=== PATIENT | male | born 2000 | race Two or more races ===

== ENCOUNTER 2021-02-02 23:04 | Inpatient (IN) | payer SELFPAY ==
[2021-02-02] MEDS ORDERED: Sodium Chloride 0.9% 2.5 ML Syringe FLUSH PRN (23:06)
[2021-02-02] MEDS ORDERED: Sodium Chloride 0.9% 10 ML Syringe FLUSH PRN (23:06)
[2021-02-02] MEDS ORDERED: LORazepam 2 MG/ML SDV IVPUSH ONE (23:13)
[2021-02-02] MEDS ORDERED: Ondansetron 4 MG/2 ML SDV IVPUSH ONE (23:18)
--- NOTE | 2021-02-02 23:20 | EDM.PDOC ---
ED HPI GENERAL MEDICAL PROBLEM - General Chief Complaint: Neuro Symptoms/Deficits Stated Complaint: EMS Time Seen by Provider: 02/02/21 23:05 - History of Present Illness INITIAL COMMENTS - FREE TEXT/NARRATIVE: History of present illness: [] The patient was witnessed by his Dormate having a seizure. He had a brief seizure and then was confused afterwards. The history given to the paramedics was that he takes Prozac and he had been off it 2 days. When he was off it for 2 days in the past he had a seizure as well. The patient was confused on arrival. The mother said that he is treated for schizophrenia and she lives in [place]. She says she wants to be called back at anytime day or night. Her number is [phone]. He complains of a headache. The patient admits that he is unable to keep his Prozac down because he has been vomiting for 2 days. Review of systems: As per history of present illness and below otherwise all systems reviewed and negative. Past medical history: As per history of present illness and as reviewed below otherwise noncontributory. Surgical history: As per history of present illness and as reviewed below otherwise noncontributory. Social history: No reported history of drug or alcohol abuse. Family history: As per history of present illness and as reviewed below otherwise noncontributory. Physical exam: Constitutional - well developed, well-nourished and in no acute distress HEENT - normocephalic, no evidence of trauma - external nose and mouth normal - no mass in neck and no JVD - mucosae moist EYES - full EOM, PERRL, no icterus - no evidence of inflammation, injection, or drainage Respiratory - no respiratory distress, equal bilateral expansion, lungs clear to auscultation and no abnormal lung sounds Cardiovascular - Regular Rhythm with S1 and S2 appreciated and no murmur, gallop or rub. GI - abdomen soft without distension or organomegaly - normal bowel sounds - no guard or rebound Musculoskeletal no gross deformity of long bones or joints - no tenderness, swelling or edema Neurologic - Alert and oriented times four - CN II-XII grossly intact - motor sensory and coordination symmetrically normal Psychiatric -somewhat anxious. Confused. Does remember that he has had seizures in the past. Not sure if he is on seizure medicine but is sure that he is on Prozac and has not been be able to take it. Hematologic - No petechiae or purpura - mucosa appropriate color and sclera not pale - normal nail bed color and refill Integument - no rash or evidence of trauma - normal turgor Diagnostics: [] Therapeutics: [] Impression: [] Plan: [] Definitive disposition and diagnosis as appropriate pending reevaluation and review of above. - Related Data Allergies Allergy/AdvReac Type Severity Reaction Status Date / Time No Known Allergies Allergy Verified 02/03/21 01:53 Home Meds: Home Meds FLUoxetine HCl [Prozac] 20 mg PO DAILY 02/03/21 [History] ED ROS GENERAL - Review of Systems Review Of Systems: Comprehensive ROS is negative, except as noted in HPI. ED EXAM, GENERAL - Physical Exam Exam: See Below Free Text/Narrative:: My physical exam is in the HPI Course - Vital Signs Text/Narrative:: 00 57 hours the patient was discussed with Dr. Vann. If this patient was vomiting because of Covid will put the patient in the hospital because he cannot return to the dorm. A CT of the abdomen will be done first because of his white count. Last Recorded V/S: Last Vital Signs Temp 36.3 C 02/02/21 23:25 Pulse 76 02/03/21 01:52 Resp 16 02/03/21 01:52 BP 120/69 02/03/21 01:52 Pulse Ox 97 02/03/21 01:52 - Orders/Labs/Meds Orders: Active Orders 24 hr Category Date Time Status DRUG SCREEN, URINE [URCHEM] Stat Lab 02/02/21 23:07 Ordered Sodium Chloride 0.9% [Saline Flush] Med 02/02/21 23:06 Active 10 ml FLUSH ASDIRECTED PRN Sodium Chloride 0.9% [Saline Flush] Med 02/02/21 23:06 Active 2.5 ml FLUSH ASDIRECTED PRN Saline Lock Insert [OM.PC] Stat Oth 02/02/21 23:06 Ordered Medication Orders Sodium Chloride (Sodium Chloride 0.9% 10 Ml Syringe) 10 ml FLUSH ASDIRECTED PRN PRN Reason: Keep Vein Open Sodium Chloride (Sodium Chloride 0.9% 2.5 Ml Syringe) 2.5 ml FLUSH ASDIRECTED PRN PRN Reason: Keep Vein Open Labs: Laboratory Tests 02/02/21 02/02/21 02/02/21 Range/Units 23:15 23:15 23:15 WBC 18.19 H (4.0-11.0) K/uL RBC 4.51 (4.50-5.90) M/uL Hgb 13.8 (13.0-17.0) g/dL Hct 40.1 (38.0-50.0) % MCV 88.9 (80.0-98.0) fL MCH 30.6 (27.0-32.0) pg MCHC 34.4 (31.0-37.0) g/dL RDW Std Deviation 42.0 (28.0-62.0) fl RDW Coeff of Marla 13 (11.0-15.0) % Plt Count 217 (150-400) K/uL MPV 9.90 (7.40-12.00) fL Neut % (Auto) 91.6 H (48.0-80.0) % Lymph % (Auto) 4.7 L (16.0-40.0) % [place] % (Auto) 3.7 (0.0-15.0) % Eos % (Auto) 0.0 (0.0-7.0) % Baso % (Auto) 0.0 (0.0-1.5) % Neut # (Auto) 16.7 H (1.4-5.7) K/uL Lymph # (Auto) 0.9 (0.6-2.4) K/uL [place] # (Auto) 0.7 (0.0-0.8) K/uL Eos # (Auto) 0.0 (0.0-0.7) K/uL Baso # (Auto) 0.0 (0.0-0.1) K/uL Nucleated RBC % 0.0 /100WBC Nucleated RBCs # 0 K/uL Sodium 137 (136-148) mmol/L Potassium 3.8 (3.5-5.1) mmol/L Chloride 98 (98-107) mmol/L Carbon Dioxide 20.6 L (21.0-32.0) mmol/L BUN 16 (7.0-18.0) mg/dL Creatinine 1.4 H (0.8-1.3) mg/dL Est Cr Clr Drug Dosing TNP Estimated GFR (MDRD) > 60.0 ml/min Glucose 178 H (74-106) mg/dL Calcium 8.5 (8.5-10.1) mg/dL Total Bilirubin 0.3 (0.2-1.0) mg/dL AST 21 (15-37) IU/L ALT 26 (14-63) IU/L Alkaline Phosphatase 76 (46-116) U/L Total Protein 8.2 (6.4-8.2) g/dL Albumin 4.6 (3.4-5.0) g/dL Globulin 3.6 (2.6-4.0) g/dL Albumin/Globulin Ratio 1.3 (0.9-1.6) Ethyl Alcohol < 3.0 mg/dL SARS-CoV-2 RNA (JIMMY) POSITIVE H (NEGATIVE) Meds: Medications Generic Name Dose Route Start Last Admin Trade Name Freq PRN Reason Stop Dose Admin Sodium Chloride 10 ml 02/02/21 23:06 Sodium Chloride 0.9% 10 Ml Syringe FLUSH ASDIRECTED PRN Keep Vein Open Sodium Chloride 2.5 ml 02/02/21 23:06 Sodium Chloride 0.9% 2.5 Ml Syringe FLUSH ASDIRECTED PRN Keep Vein Open Discontinued Medications Generic Name Dose Route Start Last Admin Trade Name Freq PRN Reason Stop Dose Admin Iopamidol 100 ml 02/03/21 01:03 02/03/21 01:39 Iopamidol 755 Mg/Ml 100 Ml Bottle IVPUSH 02/03/21 01:04 100 ml ONETIME ONE Administration Lorazepam 1 mg 02/02/21 23:13 02/02/21 23:34 Lorazepam 2 Mg/Ml Sdv IVPUSH 02/02/21 23:14 1 mg ONETIME ONE Administration Ondansetron HCl 4 mg 02/02/21 23:18 02/02/21 23:34 Ondansetron 4 Mg/2 Ml Sdv IVPUSH 02/02/21 23:19 4 mg ONETIME ONE Administration Departure - Departure Time of Disposition: 02:54 Disposition: Admitted As Inpatient 67 Clinical Impression: Seizure, Nonadherence to medication, Vomiting, COVID-19 - Discharge Information Sepsis Event Note (ED) - Focused Exam Vital Signs: Vital Signs Temp Pulse Resp BP Pulse Ox 02/03/21 01:52 76 16 120/69 97 02/03/21 01:00 76 16 115/67 97 02/02/21 23:25 36.3 C 78 18 105/54 L 96 - My Orders Last 24 Hours: My Active Orders 02/02/21 23:06 Sodium Chloride 0.9% [Saline Flush] 10 ml FLUSH ASDIRECTED PRN Sodium Chloride 0.9% [Saline Flush] 2.5 ml FLUSH ASDIRECTED PRN Saline Lock Insert [OM.PC] Stat 02/02/21 23:07 DRUG SCREEN, URINE [URCHEM] Stat - Assessment/Plan Last 24 Hours: My Active Orders 02/02/21 23:06 Sodium Chloride 0.9% [Saline Flush] 10 ml FLUSH ASDIRECTED PRN Sodium Chloride 0.9% [Saline Flush] 2.5 ml FLUSH ASDIRECTED PRN Saline Lock Insert [OM.PC] Stat 02/02/21 23:07 DRUG SCREEN, URINE [URCHEM] Stat
[2021-02-02 23:58] LABS: BLOOD UREA NITROGEN,BUN 16 mg/dL (7.0-18.0); CARBON DIOXIDE,CO2 20.6 mmol/L (21.0-32.0); CHLORIDE,CL 98 mmol/L (98-107); GLUCOSE RANDOM 178 mg/dL (74-106); POTASSIUM,K 3.8 mmol/L (3.5-5.1); SODIUM,NA 137 mmol/L (136-148)
[2021-02-03] MEDS ORDERED: Iopamidol 755 Mg/ML 100 ML Bottle IVPUSH ONE (01:03)
--- NOTE | 2021-02-03 02:17 | CT ---
Indication: Abdominal pain, vomiting, elevated white blood cell count, positive COVID test Technique: Contrast enhanced axial CT imaging through the abdomen and pelvis. 100 mL Isovue 370 contrast agent was administered intravenously. Sagittal and coronal reconstructions are provided. Comparison: None Findings: No abnormalities are demonstrated relating to the liver, gallbladder, spleen, pancreas, adrenal glands, and kidneys. The portal vein is patent. The abdominal aorta is normal in caliber. There is no abdominal or pelvic lymphadenopathy. The urinary bladder is unremarkable. The stomach and duodenum are unremarkable. There is no small bowel wall thickening or abnormal distention. The appendix is noninflamed. There is no colonic wall thickening, mesenteric edema, or intraperitoneal free fluid. The osseous structures are unremarkable. The included lung bases are clear. Impression: No acute process demonstrated in the abdomen and pelvis. Please note that all CT scans at this facility use dose modulation, iterative reconstruction, and/or weight-based dosing when appropriate to reduce radiation dose to as low as reasonably achievable. Dictated by Tisha Gimenez MD @ 02/03/2021 2:14:[address] Tisha Gimenez @ Feb 03 2021 2:14AM
[2021-02-03] MEDS ORDERED: LORazepam 2 MG/ML SDV IVPUSH PRN (03:45)
[2021-02-03] MEDS ORDERED: FLUoxetine 20 MG Cap PO SCH (04:15)
[2021-02-03 07:00] LABS: BLOOD UREA NITROGEN,BUN 13 mg/dL (7.0-18.0); CARBON DIOXIDE,CO2 26.6 mmol/L (21.0-32.0); CHLORIDE,CL 97 mmol/L (98-107); GLUCOSE RANDOM 104 mg/dL (74-106); POTASSIUM,K 4.1 mmol/L (3.5-5.1); SODIUM,NA 133 mmol/L (136-148)
[2021-02-03] MEDS ORDERED: Sodium Chloride 0.9% 2.5 ML Syringe FLUSH PRN (08:10)
[2021-02-03] MEDS ORDERED: Acetaminophen 325 MG Tab PO PRN (08:10)
[2021-02-03] MEDS ORDERED: Ondansetron 4 MG/2 ML SDV IVPUSH PRN (08:10)
--- NOTE | 2021-02-03 08:10 | PCM.HP.2 ---
H&P History of Present Illness - General Date of Service: 02/03/21 Admit Problem/Dx: Admission Diagnosis/Problem Admission Diagnosis/Problem Seizure Source of Information: Patient History Limitations: Reports: No Limitations - History of Present Illness Initial Comments - Free Text/Narative: This 20-year-old male with past medical history of depression presented to the ER via EMS after room mate noticed he was having seizure-like activity. After the seizure he seemed to be confused and postictal. Per report given to EMS and ER patient had been vomiting for the past 2 days and not taking his Prozac. Family reported that when patient has been off his Prozac in the past for approximately 2 days he does have seizure-like activity. Patient is much more alert this morning reports that he has had at least 3 episodes of his seizure- like activity not necessarily linked to Prozac. Patient not completely truthful with history as well as different providers different stories. Does not also Dr. Vann that patient had for seizure after taking LSD approximately 6 tabs and then 3 tabs under time which she had a seizure. He denies any recreational drug use last evening but reports using marijuana intermittently. He also reports that he tested positive initially for Covid 3 weeks ago to [facility] pharmacy in [place] prior to coming to [place]. Nursing was able to check on his phone and the positive test was January 25, 2021. Patient denies having any fevers or chills but has been having intermittent poor appetite and nausea and vomiting. He reports that he did not take his Prozac the last few days as he is somewhat forgotten. Patient denies any neck pain or neurological symptoms. He is expressing concern about missing classes and wanting to leave. He denies any chest pain shortness of breath no sinus congestion. He is voiding appropriately. Denies tobacco use and no alcohol use. He reports of previous seizures he is not been evaluated denies ever having MRI of the brain or head CT. He does report that he has been in the hospital after the seizures. He denies ever seeing neurology. Denies family history of seizures. In the ER white count 18,000 platelet count 217,000. Neutrophils 91.6%. Sodium 137 potassium 3.8 BUN 16 creatinine 1.4 glucose 178 alcohol negative Covid swab positive. Abdominal CT performed due to nausea and vomiting and elevated white count. CT revealed no acute process within the abdomen. Patient was admitted for observation secondary to seizure and leukocytosis. In the ER patient was given Ativan and Zofran x1 each. Prozac restarted. - Related Data Allergies/Adverse Reactions: Allergies Allergy/AdvReac Type Severity Reaction Status Date / Time No Known Allergies Allergy Verified 02/03/21 03:11 Home Medications: Home Meds FLUoxetine HCl [Prozac] 20 mg PO DAILY 02/03/21 [History] levETIRAcetam [Keppra] 500 mg PO BID #60 tablet 02/03/21 [Rx] Past Medical History HEENT History: Reports: None Cardiovascular History: Reports: None Respiratory History: Reports: None Gastrointestinal History: Reports: None Genitourinary History: Reports: None Musculoskeletal History: Reports: None Neurological History: Reports: Seizure Psychiatric History: Reports: Anxiety, Depression, Schizophrenia Other Psychiatric History: patient looks drowsy & not answering triage questions Endocrine/Metabolic History: Reports: None Hematologic History: Reports: None Other Hematologic History: patient looks drowsy & not answering triage questions Immunologic History: Reports: None Other Immunologic History: patient looks drowsy & not answering triage questions Oncologic (Cancer) History: Reports: None Dermatologic History: Reports: None - Infectious Disease History Infectious Disease History: Reports: Novel Coronavirus - Past Surgical History Head Surgeries/Procedures: Reports: None HEENT Surgical History: Reports: None Social & Family History - Family History HEENT: Reports: None - Tobacco Use Tobacco Use Status *Q: Former Tobacco User Years of Tobacco use: 3 Used Tobacco, but Quit: Yes Month/Year Tobacco Last Used: 2 - Caffeine Use Caffeine Use: Reports: Coffee - Recreational Drug Use Recreational Drug Use: No Drug Use in Last 12 Months: Yes Recreational Drug Type: Reports: Marijuana/Hashish H&P Review of Systems - Review of Systems: Review Of Systems: See Below General: Reports: No Symptoms. Denies: Fever, Chills, Malaise, Weakness HEENT: Reports: No Symptoms. Denies: Hearing Changes, Sinus Congestion, Visual Changes Pulmonary: Reports: No Symptoms. Denies: Shortness of Breath Cardiovascular: Reports: No Symptoms. Denies: Chest Pain Gastrointestinal: Reports: No Symptoms. Denies: Abdominal Pain, Diarrhea, Decreased Appetite, Nausea, Vomiting Genitourinary: Reports: No Symptoms. Denies: Dysuria, Frequency, Burning Musculoskeletal: Denies: Neck Pain, Muscle Stiffness Skin: Reports: No Symptoms Psychiatric: Reports: No Symptoms. Denies: Suicidal Ideation, Homicidal Ideation Neurological: Reports: No Symptoms Hematologic/Lymphatic: Reports: No Symptoms Immunologic: Reports: No Symptoms Exam - Exam Exam: See Below - Vital Signs Vital Signs: Last Vital Signs Temp 97.3 F 02/03/21 03:09 Pulse 83 02/03/21 03:09 Resp 16 02/03/21 03:09 BP 114/65 02/03/21 03:09 Pulse Ox 100 02/03/21 03:09 Weight: 79.107 kg - Exam Quality Assessment: DVT Prophylaxis. No: Supplemental Oxygen General: Alert, Oriented, Cooperative HEENT: Conjunctiva Clear, Posterior Pharynx Clear, Pupils Equal Lungs: Clear to Auscultation, Normal Respiratory Effort Cardiovascular: Regular Rate, Regular Rhythm GI/Abdominal Exam: Normal Bowel Sounds, Soft, Non-Tender Back Exam: Normal Inspection, Full Range of Motion Extremities: Normal Inspection, Normal Range of Motion, Non-Tender, No Pedal Edema Neurological: Cranial Nerves Intact, Reflexes Equal Bilateral Neuro Extensive - Mental Status: Alert, Oriented x3, Normal Mood/Affect, Normal Cognition, Memory Intact Neuro Extensive - Motor, Sensory, Reflexes: CN II-XII Intact, Normal Gait, Normal Reflexes Psychiatric: Alert, Normal Affect, Normal Mood - Patient Data Lab Results Last 24 hrs: Laboratory Results - last 24 hr 02/02/21 02/02/21 02/02/21 Range/Units 23:15 23:15 23:15 WBC 18.19 H (4.0-11.0) K/uL RBC 4.51 (4.50-5.90) M/uL Hgb 13.8 (13.0-17.0) g/dL Hct 40.1 (38.0-50.0) % MCV 88.9 (80.0-98.0) fL MCH 30.6 (27.0-32.0) pg MCHC 34.4 (31.0-37.0) g/dL RDW Std Deviation 42.0 (28.0-62.0) fl RDW Coeff of Marla 13 (11.0-15.0) % Plt Count 217 (150-400) K/uL MPV 9.90 (7.40-12.00) fL Neut % (Auto) 91.6 H (48.0-80.0) % Lymph % (Auto) 4.7 L (16.0-40.0) % [place] % (Auto) 3.7 (0.0-15.0) % Eos % (Auto) 0.0 (0.0-7.0) % Baso % (Auto) 0.0 (0.0-1.5) % Neut # (Auto) 16.7 H (1.4-5.7) K/uL Lymph # (Auto) 0.9 (0.6-2.4) K/uL [place] # (Auto) 0.7 (0.0-0.8) K/uL Eos # (Auto) 0.0 (0.0-0.7) K/uL Baso # (Auto) 0.0 (0.0-0.1) K/uL Nucleated RBC % 0.0 /100WBC Nucleated RBCs # 0 K/uL Sodium 137 (136-148) mmol/L Potassium 3.8 (3.5-5.1) mmol/L Chloride 98 (98-107) mmol/L Carbon Dioxide 20.6 L (21.0-32.0) mmol/L BUN 16 (7.0-18.0) mg/dL Creatinine 1.4 H (0.8-1.3) mg/dL Est Cr Clr Drug Dosing TNP Estimated GFR (MDRD) > 60.0 ml/min Glucose 178 H (74-106) mg/dL Calcium 8.5 (8.5-10.1) mg/dL Total Bilirubin 0.3 (0.2-1.0) mg/dL AST 21 (15-37) IU/L ALT 26 (14-63) IU/L Alkaline Phosphatase 76 (46-116) U/L Total Protein 8.2 (6.4-8.2) g/dL Albumin 4.6 (3.4-5.0) g/dL Globulin 3.6 (2.6-4.0) g/dL Albumin/Globulin Ratio 1.3 (0.9-1.6) Ethyl Alcohol < 3.0 mg/dL SARS-CoV-2 RNA (JIMMY) POSITIVE H (NEGATIVE) 02/03/21 02/03/21 Range/Units 05:58 05:58 WBC 13.86 H (4.0-11.0) K/uL RBC 4.28 L (4.50-5.90) M/uL Hgb 12.7 L (13.0-17.0) g/dL Hct 37.3 L (38.0-50.0) % MCV 87.1 (80.0-98.0) fL MCH 29.7 (27.0-32.0) pg MCHC 34.0 (31.0-37.0) g/dL RDW Std Deviation 41.8 (28.0-62.0) fl RDW Coeff of Marla 13 (11.0-15.0) % Plt Count 197 (150-400) K/uL MPV 9.70 (7.40-12.00) fL Neut % (Auto) 88.5 H (48.0-80.0) % Lymph % (Auto) 6.6 L (16.0-40.0) % [place] % (Auto) 4.9 (0.0-15.0) % Eos % (Auto) 0.0 (0.0-7.0) % Baso % (Auto) 0.0 (0.0-1.5) % Neut # (Auto) 12.3 H (1.4-5.7) K/uL Lymph # (Auto) 0.9 (0.6-2.4) K/uL [place] # (Auto) 0.7 (0.0-0.8) K/uL Eos # (Auto) 0.0 (0.0-0.7) K/uL Baso # (Auto) 0.0 (0.0-0.1) K/uL Nucleated RBC % 0.0 /100WBC Nucleated RBCs # 0 K/uL Sodium 133 L (136-148) mmol/L Potassium 4.1 (3.5-5.1) mmol/L Chloride 97 L (98-107) mmol/L Carbon Dioxide 26.6 (21.0-32.0) mmol/L BUN 13 (7.0-18.0) mg/dL Creatinine 0.9 (0.8-1.3) mg/dL Est Cr Clr Drug Dosing 144.90 Estimated GFR (MDRD) > 60.0 ml/min Glucose 104 (74-106) mg/dL Calcium 8.6 (8.5-10.1) mg/dL Total Bilirubin (0.2-1.0) mg/dL AST (15-37) IU/L ALT (14-63) IU/L Alkaline Phosphatase (46-116) U/L Total Protein (6.4-8.2) g/dL Albumin (3.4-5.0) g/dL Globulin (2.6-4.0) g/dL Albumin/Globulin Ratio (0.9-1.6) Ethyl Alcohol mg/dL SARS-CoV-2 RNA (JIMMY) (NEGATIVE) Result Diagrams: 02/03/21 05:58 02/03/21 05:58 Sepsis Event Note - Evaluation Sepsis Screening Result: Possible Sepsis Risk - Focused Exam Vital Signs: Vital Signs Temp Pulse Resp BP Pulse Ox 02/03/21 03:09 97.3 F 83 16 114/65 100 02/03/21 01:52 76 16 120/69 97 02/03/21 01:00 76 16 115/67 97 02/02/21 23:25 97.3 F 78 18 105/54 L 96 - Problem List (1) COVID-19 SNOMED Code(s): 201053875 ICD Code: U07.1 - COVID-19 Status: Acute Current Visit: Yes (2) Seizure SNOMED Code(s): 31177134 ICD Code: R56.9 - UNSPECIFIED CONVULSIONS Status: Acute Current Visit: Yes (3) Vomiting SNOMED Code(s): 546697393 ICD Code: R11.10 - VOMITING, UNSPECIFIED Status: Acute Current Visit: Yes (4) Schizophrenia SNOMED Code(s): 60656120 ICD Code: F20.9 - SCHIZOPHRENIA, UNSPECIFIED Status: Chronic Current Visit: Yes Problem List Initiated/Reviewed/Updated: Yes Orders Last 24hrs: Active Orders 24 hr Category Date Time Status Admission Status [Patient Status] [ADT] Stat ADT 02/03/21 02:24 Active Telemetry Monitoring [Cardiac Monitoring] [RC] Q8H Care 02/03/21 03:03 Active Regular Diet [DIET] Diet 02/03/21 Breakfast Active DRUG SCREEN, URINE [URCHEM] Stat Lab 02/02/21 23:07 Ordered FLUoxetine [PROzac] Med 02/03/21 04:15 Active 20 mg PO DAILY LORazepam [Ativan] Med 02/03/21 03:45 Active 2 mg IVPUSH ONETIME PRN Sodium Chloride 0.9% [Saline Flush] Med 02/02/21 23:06 Active 10 ml FLUSH ASDIRECTED PRN Sodium Chloride 0.9% [Saline Flush] Med 02/02/21 23:06 Active 2.5 ml FLUSH ASDIRECTED PRN Saline Lock Insert [OM.PC] Stat Oth 02/02/21 23:06 Ordered Seizure Precautions [OM.PC] Routine Oth 02/03/21 03:45 Ordered Medication Orders Fluoxetine HCl (Fluoxetine 20 Mg Cap) 20 mg PO DAILY DON Last Admin: 02/03/21 05:10 Dose: 20 mg Documented by: SEMICHR Lorazepam (Lorazepam 2 Mg/Ml Sdv) 2 mg IVPUSH ONETIME PRN PRN Reason: seizure Sodium Chloride (Sodium Chloride 0.9% 10 Ml Syringe) 10 ml FLUSH ASDIRECTED PRN PRN Reason: Keep Vein Open Sodium Chloride (Sodium Chloride 0.9% 2.5 Ml Syringe) 2.5 ml FLUSH ASDIRECTED PRN PRN Reason: Keep Vein Open Assessment/Plan Comment:: This 20-year-old male admitted with seizure activity and found to be COVID-19 positive 1. Seizure activity -No further seizure activity -Patient alert and oriented -Restart Prozac daily - Leukocytosis likely reactive to seziure activity, improved today to 13,000 2. COVID-19 -Zofran as needed nausea -Counseled on quarantining protocol VTE prophylaxis: SCDs CODE STATUS: full code Dispo: 1 to 2 days Discharge plan: This morning on rounds patient was agreeable to stay for chest x-ray which returned negative as well as head CT to further evaluate brain regarding seizures. Patient obtain head CT but currently is not unwilling to stay and is wanting to leave. Patient initial Covid test from what we can divulge from patient as well as [facility] records is that he was positive on January 25 landing him still in the middle of quarantine. He was counseled heavily on remaining in quarantine staying away from public places and not to return to class. He reports that he is traveled across the country to come to school and that he otherwise will be attending school per report of nursing. Patient given handouts regarding isolation recommendations from the [facility] and that he should remain on quarantine until at least February 04. He is unvaccinated at this time. He was started on Keppra 500 mg twice daily to help decrease seizures as this is his now third event of seizures. Seizures may be secondary to recreational drug use such as LSD and not necessarily due to epilepsy but at this time unable to determine fully. He ad CT still pending but patient is leaving AGAINST MEDICAL ADVICE at this time. Vital signs have been stable. Patient is alert and oriented and able to make decisions for himself at this time. He was again counseled heavily on quarantining wearing a mask in public places. He was also counseled on no driving for 6 months due to seizure activity with unprovoked cause. Referral to neurology was sent Keppra 500 mg twice daily sent to [facility] pharmacy for him to fill. He is to return to the ER clinic if concerns should arise or further seizure activity were to continue.
[2021-02-03] MEDS ORDERED: Lactated Ringers 1,000 ML IV ONE (08:50)
[2021-02-03] MEDS ORDERED: levETIRAcetam 500 MG Tab PO SCH (09:00)
--- NOTE | 2021-02-03 09:58 | CR ---
INDICATION: Leukocytosis. COVID positive. TECHNIQUE: Chest 1 view COMPARISON: None FINDINGS: Cardiovascular and mediastinum: Heart size and vasculature are normal in caliber and appearance. Lungs and pleural spaces: Lungs are clear. No sign of infiltrate or mass. No sign of pleural effusion. No pneumothorax. Bones and soft tissues: No significant findings. IMPRESSION: Negative chest. Lungs are clear. Dictated by Tommy Canseco MD @ 02/03/2021 9:57:[address] Tommy Canseco @ Feb 03 2021 9:57AM
--- NOTE | 2021-02-03 11:58 | CT ---
Indication: Patient had seizure at school Technique: Volumetric multidetector CT images of the head were obtained without the administration of low osmolar intravenous contrast. Comparison: None available Findings: There is no intra-axial or extra-axial fluid collection. There is no mass effect or midline shift. There is a cavum septum pellucidum at vergae with mildly convex margins of the septum pellucidum which could represent a small arachnoid cyst within the cavum. Grossly, the bilateral choroid fissures are symmetrical. There is a linear hyperdense focus in the right occipital lobe likely representing a small developmental venous anomaly. The brain parenchyma is grossly preserved in attenuation and rossi-white differentiation. The orbits and their contents are grossly within normal limits. The bony calvarium is grossly intact. The paranasal sinuses are clear. The mastoid air cells are well aerated. Impression: No definite acute intracranial abnormality is appreciated. Incidental note made of a benign developmental venous anomaly within the right occipital lobe with a prominent draining medullary vein. Additional incidental note is made of a cavum septum pellucidum and vergae with mildly convex appearing margins which may represent presence of a small arachnoid cyst. Please note that all CT scans at this facility use dose modulation, iterative reconstruction, and/or weight-based dosing when appropriate to reduce radiation dose to as low as reasonably achievable. Dictated by Chon Snell MD @ 02/03/2021 11:57:[address] Chon Snell @ Feb 03 2021 11:57AM
== END 2021-02-03 11:30 | disposition left against medical advice (07) | DRG 100 ==
LOC: MW.ED 23:04 → MW.MS 02-03 02:24
PROVIDERS: ADMIT Internal Medicine; ATTEND Internal Medicine
DX: R56.9 Unspecified convulsions (principal); U07.1 COVID-19; F32.9 Major depressive disorder, single episode, unspecified; Z87.891 Personal history of nicotine dependence
CPT/HCPCS: 36415; 70450; 70450-26; 71045; 71045-26; 74177; 74177-26; 80048; 80053; 80307; 85025; 96374; 96375; 99285-25; A9270-GY; J2060; J2405; J7120; Q9967; U0002

== ENCOUNTER 2021-02-21 19:31 | Emergency (ER) | payer SELFPAY ==
[2021-02-21] MEDS ORDERED: Ondansetron 4 MG/2 ML SDV ONE (20:00)
[2021-02-21] MEDS ORDERED: Ondansetron 4 MG/2 ML SDV IVPUSH ONE (20:13)
--- NOTE | 2021-02-21 20:20 | EDM.PDOC ---
ED HPI GENERAL MEDICAL PROBLEM - General Chief Complaint: Neuro Symptoms/Deficits Stated Complaint: SEIZURE Time Seen by Provider: 02/21/21 19:46 Source of Information: Reports: Patient History Limitations: Reports: No Limitations - History of Present Illness INITIAL COMMENTS - FREE TEXT/NARRATIVE: HISTORY AND PHYSICAL: History of present illness: Patient is a 20-year-old male who presents emergency room today via EMS for concern of seizure-like activity. Per EMS, the seizure was unwitnessed but have been called and after he was found in a postictal state. EMS states that entire route, patient has been confused and postictal. Patient has a known seizure disorder according to documentation, and on exam patient does note he has a known seizure disorder on Keppra. In the emergency room today, patient is confused and somewhat emotional, intermittently crying, and still not oriented or returned to baseline, stating he does feel confused. He does intermittently ask some questions appropriately but not all questions answered and addressed. Review of systems: As per history of present illness and below otherwise all systems reviewed and negative. Past medical history: As per history of present illness and as reviewed below otherwise noncontributory. Surgical history: As per history of present illness and as reviewed below otherwise noncontributory. Social history: See social history for further information Family history: As per history of present illness and as reviewed below otherwise noncontributory. Physical exam: General: Patient is alert, confused with intermittent answering of questions appropriately, and in no acute distress. Patient laying comfortably on exam table. Vitals stable and reviewed by me. HEENT: Atraumatic, normocephalic, pupils equal and reactive bilaterally, negative for conjunctival pallor or scleral icterus, mucous membranes moist, TMs normal bilaterally, throat clear, neck supple, nontender, trachea midline. No d rooling or trismus noted. No meningeal signs. No hot potato voice noted. Lungs: Clear to auscultation, breath sounds equal bilaterally, chest nontender. Heart: S1S2, regular rate and rhythm without overt murmur Abdomen: Soft, nondistended, nontender. Negative for masses or hepatosplenomegaly. Negative for costovertebral tenderness. Pelvis: Stable nontender. Genitourinary: Deferred. Rectal: Deferred. Skin: Intact, warm, dry. No lesions or rashes noted. Extremities: Atraumatic, negative for cords or calf pain. Neurovascular unremarkable. Neuro: Awake, alert, confused with intermittent answering of questions appropriately. Intermittently crying. Cranial nerves II through XII unremarkable. Cerebellum unremarkable. Motor and sensory unremarkable throughout. Exam nonfocal. Notes: On chart review from 02/02/2021, patient was seen in the ER after having seizure- like activity noticed by a roommate. At that time, patient was confused and postictal and had been vomiting. Patient had not been taking his Prozac at that time. Upon chart review, it does appear as if patient has had prior seizures that have required hospitalization in the past. Patient was noted to have an elevated white blood cell count at 18,000 mild elevation of creatinine at 1.4 and tested positive for Covid at his last ED visit. Patient was admitted for observation secondary to seizure and elevated white blood cell count. Review also notes that patient is possibly being treated for schizophrenia, according to patient's mother from ER documentation. Patient is a 20-year-old male who presents emergency room today via EMS for seizure-like activity that was unwitnessed at the dorm with a known seizure disorder. Upon arrival to the ED, patient is vitally stable but is confused, randomly crying on exam, and intermittently appropriately asking questions while also making inappropriate bizarre statements. According to chart review, patient is on Keppra as well as being treated for schizophrenia. Patient was admitted to the hospital secondary to vomiting and inability to return to the dorm room on 02/02/2021 secondary to COVID-19 infection according to documentation. Will obtain routine lab work, ethanol level, urine drug screen, Keppra level, lactate, prolactin, head CT due to given prolonged postictal/confusion state. CBC mild derangements unremarkable. CMP shows mild hyponatremia at 135, carbon dioxide decreased at 17.5, creatinine mildly elevated at 1.4, which stable from past lab work, glucose mildly elevated at 217. Lactic acid is elevated at 3.8, CK mild elevation at 471, prolactin 10.2. Otherwise mild derangements of CMP unremarkable. At the alcohol negative. Head CT without contrast shows no acute intracranial abnormality. Upon reevaluation of patient, he remains vitally stable and has improvement of his post ictal state. After further conversation with patient, he states that he has had multiple seizures in the past but chooses not to follow-up with a neurologist or address his seizure issues with a primary care provider as he "doesn't want to burden his parents with the cost". Patient does note that he stop smoking marijuana 2 days ago and does feel that this possibly triggered his seizure. Patient states that he is not taking Keppra as is in his chart as he has not continued to follow-up in order to receive this. Patient was given a dose of Keppra today in the emergency room and sent a prescription for home. Patient is requesting to leave the ED prior to completion of his fluids and repeat lactic acid level. All risks versus benefits discussed with patient and expresses understanding. Strict return precautions thoroughly discussed with patient. Discussed the importance for follow-up with a neurologist and patient placed on neurology follow-up. Voices understanding and is agreeable to plan of care. Denies any further questions or concerns at this time. Diagnostics: CBC, CMP, CPK, ethanol, lactate, Keppra level, prolactin, EKG, head CT without contrast Therapeutics: Dominic Cruz, [place] Prescription: Keppra Impression: Seizure Medication non compliance Plan: 1. Take medication as prescribed. 2. Follow-up with a neurologist as discussed. The number has been provided above for you to call and establish an appointment time. 3. Return to the emergency room as needed and as discussed. Definitive disposition and diagnosis as appropriate pending reevaluation and review of above. - Related Data Allergies Allergy/AdvReac Type Severity Reaction Status Date / Time No Known Allergies Allergy Verified 02/03/21 03:11 Home Meds: Home Meds FLUoxetine HCl [Prozac] 20 mg PO DAILY 02/03/21 [History] levETIRAcetam [Keppra] 500 mg PO BID #60 tablet 02/03/21 [Rx] levETIRAcetam [Keppra] 500 mg PO BID #30 tab 02/21/21 [Rx] Past Medical History HEENT History: Reports: None Cardiovascular History: Reports: None Respiratory History: Reports: None Gastrointestinal History: Reports: None Genitourinary History: Reports: None Musculoskeletal History: Reports: None Neurological History: Reports: Seizure Psychiatric History: Reports: Anxiety, Depression, Schizophrenia Other Psychiatric History: patient looks drowsy & not answering triage questions Endocrine/Metabolic History: Reports: None Hematologic History: Reports: None Other Hematologic History: patient looks drowsy & not answering triage questions Immunologic History: Reports: None Other Immunologic History: patient looks drowsy & not answering triage questions Oncologic (Cancer) History: Reports: None Dermatologic History: Reports: None - Infectious Disease History Infectious Disease History: Reports: Novel Coronavirus - Past Surgical History Head Surgeries/Procedures: Reports: None HEENT Surgical History: Reports: None Other HEENT Surgeries/Procedures: patient looks drowsy & not answering triage questions Other Cardiovascular Surgeries/Procedures: patient looks drowsy & not answering triage questions Other Respiratory Surgeries/Procedures: patient looks drowsy & not answering triage questions Other GI Surgeries/Procedures: patient looks drowsy & not answering triage qu estions Other Male Surgeries/Procedures: patient looks drowsy & not answering triage questions Other Endocrine Surgeries/Procedures: patient looks drowsy & not answering triage questions Other Neurological Surgeries/Procedures: patient looks drowsy & not answering triage questions Other Musculoskeletal Surgeries/Procedures:: patient looks drowsy & not answering triage questions Other Oncologic Surgeries/Procedures: patient looks drowsy & not answering triage questions Social & Family History - Family History HEENT: Reports: None - Tobacco Use Tobacco Use Status *Q: Unknown Ever Used Tobacco - Caffeine Use Caffeine Use: Reports: Coffee - Recreational Drug Use Recreational Drug Use: No ED ROS GENERAL - Review of Systems Review Of Systems: Comprehensive ROS is negative, except as noted in HPI. ED EXAM, GENERAL - Physical Exam Exam: See Below (see dictation) Course - Vital Signs Last Recorded V/S: Last Vital Signs Temp 96.8 F L 02/21/21 22:32 Pulse 69 02/21/21 22:32 Resp 18 02/21/21 22:32 BP 97/55 L 02/21/21 22:32 Pulse Ox 97 02/21/21 22:32 - Orders/Labs/Meds Orders: Active Orders 24 hr Category Date Time Status LEVETIRACETAM, S [REF] Stat Lab 02/21/21 19:30 Received Labs: Laboratory Tests 02/21/21 02/21/21 02/21/21 Range/Units 19:30 19:30 20:20 WBC 11.57 H (4.0-11.0) K/uL RBC 4.67 (4.50-5.90) M/uL Hgb 14.4 (13.0-17.0) g/dL Hct 41.7 (38.0-50.0) % MCV 89.3 (80.0-98.0) fL MCH 30.8 (27.0-32.0) pg MCHC 34.5 (31.0-37.0) g/dL RDW Std Deviation 45.2 (28.0-62.0) fl RDW Coeff of Marla 14 (11.0-15.0) % Plt Count 343 (150-400) K/uL MPV 9.40 (7.40-12.00) fL Neut % (Auto) 81.9 H (48.0-80.0) % Lymph % (Auto) 13.2 L (16.0-40.0) % Donley % (Auto) 4.8 (0.0-15.0) % Eos % (Auto) 0.0 (0.0-7.0) % Baso % (Auto) 0.1 (0.0-1.5) % Neut # (Auto) 9.5 H (1.4-5.7) K/uL Lymph # (Auto) 1.5 (0.6-2.4) K/uL Donley # (Auto) 0.6 (0.0-0.8) K/uL Eos # (Auto) 0.0 (0.0-0.7) K/uL Baso # (Auto) 0.0 (0.0-0.1) K/uL Nucleated RBC % 0.0 /100WBC Nucleated RBCs # 0 K/uL Sodium 135 L (136-148) mmol/L Potassium 3.7 (3.5-5.1) mmol/L Chloride 99 (98-107) mmol/L Carbon Dioxide 17.5 L (21.0-32.0) mmol/L BUN 14 (7.0-18.0) mg/dL Creatinine 1.4 H (0.8-1.3) mg/dL Est Cr Clr Drug Dosing 87.12 mL/min Estimated GFR (MDRD) > 60.0 ml/min Glucose 217 H (74-106) mg/dL Lactic Acid 3.8 H* (0.4-2.0) mmol/L Calcium 10.0 (8.5-10.1) mg/dL Total Bilirubin 0.6 (0.2-1.0) mg/dL AST 25 (15-37) IU/L ALT 28 (14-63) IU/L Alkaline Phosphatase 82 (46-116) U/L Creatine Kinase (26-308) U/L Total Protein 8.2 (6.4-8.2) g/dL Albumin 4.7 (3.4-5.0) g/dL Globulin 3.5 (2.6-4.0) g/dL Albumin/Globulin Ratio 1.3 (0.9-1.6) Prolactin ng/mL Ethyl Alcohol <3 mg/dL 02/21/21 Range/Units 20:20 WBC (4.0-11.0) K/uL RBC (4.50-5.90) M/uL Hgb (13.0-17.0) g/dL Hct (38.0-50.0) % MCV (80.0-98.0) fL MCH (27.0-32.0) pg MCHC (31.0-37.0) g/dL RDW Std Deviation (28.0-62.0) fl RDW Coeff of Marla (11.0-15.0) % Plt Count (150-400) K/uL MPV (7.40-12.00) fL Neut % (Auto) (48.0-80.0) % Lymph % (Auto) (16.0-40.0) % Donley % (Auto) (0.0-15.0) % Eos % (Auto) (0.0-7.0) % Baso % (Auto) (0.0-1.5) % Neut # (Auto) (1.4-5.7) K/uL Lymph # (Auto) (0.6-2.4) K/uL Donley # (Auto) (0.0-0.8) K/uL Eos # (Auto) (0.0-0.7) K/uL Baso # (Auto) (0.0-0.1) K/uL Nucleated RBC % /100WBC Nucleated RBCs # K/uL Sodium (136-148) mmol/L Potassium (3.5-5.1) mmol/L Chloride (98-107) mmol/L Carbon Dioxide (21.0-32.0) mmol/L BUN (7.0-18.0) mg/dL Creatinine (0.8-1.3) mg/dL Est Cr Clr Drug Dosing mL/min Estimated GFR (MDRD) ml/min Glucose (74-106) mg/dL Lactic Acid (0.4-2.0) mmol/L Calcium (8.5-10.1) mg/dL Total Bilirubin (0.2-1.0) mg/dL AST (15-37) IU/L ALT (14-63) IU/L Alkaline Phosphatase (46-116) U/L Creatine Kinase 471 H (26-308) U/L Total Protein (6.4-8.2) g/dL Albumin (3.4-5.0) g/dL Globulin (2.6-4.0) g/dL Albumin/Globulin Ratio (0.9-1.6) Prolactin 10.2 ng/mL Ethyl Alcohol mg/dL Meds: Medications Discontinued Medications Generic Name Dose Route Start Last Admin Trade Name Freq PRN Reason Stop Dose Admin Sodium Chloride 1,000 mls @ 999 mls/hr 02/21/21 20:56 02/21/21 21:17 Normal Saline IV 02/21/21 21:56 999 mls/hr STAT ONE Administration Levetiracetam 500 mg 02/21/21 21:21 02/21/21 22:32 Levetiracetam Soln 500 Mg/5 Ml Cup PO 02/21/21 21:22 500 mg NOW ONE Administration Ondansetron HCl Confirm 02/21/21 20:00 02/21/21 20:28 Ondansetron 4 Mg/2 Ml Sdv Administered 02/21/21 20:01 Not Given Dose 4 mg .ROUTE .STK-MED ONE Ondansetron HCl 4 mg 02/21/21 20:13 02/21/21 20:29 Ondansetron 4 Mg/2 Ml Sdv IVPUSH 02/21/21 20:14 4 mg ONETIME ONE Administration Departure - Departure Time of Disposition: 21:22 Disposition: Home, Self-Care 01 Clinical Impression: Seizure, Nonadherence to medication - Discharge Information Prescriptions: levETIRAcetam [Keppra] 500 mg PO BID #30 tab Instructions: Seizure, Adult, [id number] Referrals: PCP,None [Primary Care Provider] - Forms: ED Department Discharge Additional Instructions: The following information is given to patients seen in the emergency department who are being discharged to home. This information is to outline your options for follow-up care. We provide all patients seen in our emergency department with a follow-up referral. The need for follow-up, as well as the timing and circumstances, are variable depending upon the specifics of your emergency department visit. If you don't have a primary care physician on staff, we will provide you with a referral. We always advise you to contact your personal physician following an emergency department visit to inform them of the circumstance of the visit and for follow-up with them and/or the need for any referrals to a consulting specialist. The emergency department will also refer you to a specialist when appropriate. This referral assures that you have the opportunity for follow-up care with a specialist. All of these measure are taken in an effort to provide you with optimal care, which includes your follow-up. Under all circumstances we always encourage you to contact your private physician who remains a resource for coordinating your care. When calling for follow-up care, please make the office aware that this follow-up is from your recent emergency room visit. If for any reason you are refused follow-up, please contact the [facility] Emergency Department at and asked to speak to the emergency department charge nurse. [facility] - Neurology [address], [address] [place] [address] 1. Take medication as prescribed. 2. Follow-up with a neurologist as discussed. The number has been provided above for you to call and establish an appointment time. 3. Return to the emergency room as needed and as discussed. - My Orders Last 24 Hours: My Active Orders 02/21/21 19:30 LEVETIRACETAM, S [REF] Stat - Assessment/Plan Last 24 Hours: My Active Orders 02/21/21 19:30 LEVETIRACETAM, S [REF] Stat
[2021-02-21 20:21] LABS: BLOOD UREA NITROGEN,BUN 14 mg/dL (7.0-18.0); CARBON DIOXIDE,CO2 17.5 mmol/L (21.0-32.0); CHLORIDE,CL 99 mmol/L (98-107); GLUCOSE RANDOM 217 mg/dL (74-106); POTASSIUM,K 3.7 mmol/L (3.5-5.1); SODIUM,NA 135 mmol/L (136-148)
[2021-02-21] MEDS ORDERED: Sodium Chloride 0.9% 1,000 ML IV ONE (20:56)
--- NOTE | 2021-02-21 21:03 | CT ---
INDICATION: Prolonged ictal state following seizure. TECHNIQUE: CT head without contrast. COMPARISON: CT head dated 02/03/2021. FINDINGS: Cerebral parenchyma: No evidence of acute territorial infarct. No acute intraparenchymal hemorrhage. No significant mass effect/midline shift. Normal nair-white matter differentiation. Relatively symmetric appearance of the bilateral mesial temporal lobes. Extra-axial spaces: No extra-axial collection or hemorrhage. Stable previously described right occipital prominent vein. Ventricles: Cavum vergae is noted. Calvarium: Intact. Visualized paranasal sinuses/mastoid air cells: Clear Posterior fossa: No cerebellar tonsillar herniation. Visualized orbits: Unremarkable. IMPRESSION: No acute intracranial abnormality. Please note that all CT scans at this facility use dose modulation, iterative reconstruction, and/or weight-based dosing when appropriate to reduce radiation dose to as low as reasonably achievable. Dictated by Nikhil Storey MD @ 02/21/2021 9:02:19 PM (Electronically Signed)
[2021-02-21] MEDS ORDERED: levETIRAcetam Soln 500 MG/5 ML Cup PO ONE (21:21)
== END 2021-02-21 22:40 | disposition home or self-care (01) ==
LOC: MW.ED 19:31
DX: R56.9 Unspecified convulsions (principal); Z91.19 Patient's noncompliance with other medical treatment and regimen; Z86.16 Personal history of COVID-19
CPT/HCPCS: 70450; 80053; 80177; 80307; 82550; 83605; 84146; 85025; 96374; 99285; A9270; J2405; J7030

== ENCOUNTER 2021-03-06 20:18 | Emergency (ER) | payer BC ==
[2021-03-06] MEDS ORDERED: Sodium Chloride 0.9% 1,000 ML IV ONE (20:24)
[2021-03-06] MEDS ORDERED: Sodium Chloride 0.9% 2.5 ML Syringe FLUSH PRN (20:24)
[2021-03-06] MEDS ORDERED: Ondansetron 4 MG/2 ML SDV IVPUSH ONE (20:24)
[2021-03-06] MEDS ORDERED: Sodium Chloride 0.9% 10 ML Syringe FLUSH PRN (20:24)
[2021-03-06 20:51] LABS: BLOOD UREA NITROGEN,BUN 15 mg/dL (7.0-18.0); CARBON DIOXIDE,CO2 14.8 mmol/L (21.0-32.0); CHLORIDE,CL 97 mmol/L (98-107); GLUCOSE RANDOM 251 mg/dL (74-106); POTASSIUM,K 3.2 mmol/L (3.5-5.1); SODIUM,NA 138 mmol/L (136-148)
--- NOTE | 2021-03-06 21:51 | CT ---
INDICATION: Trauma TECHNIQUE: CT cervical spine without contrast. COMPARISON: None FINDINGS: Vertebral alignment: Alignment is normal. Vertebrae: There are no fractures or suspicious bony lesions. Discs and facet joints: Disc spaces and facets are within normal limits. Extraspinal findings: Prevertebral soft tissues, visualized airway, and visualized lungs are unremarkable. IMPRESSION: Unremarkable cervical spine CT. Please note that all CT scans at this facility use dose modulation, iterative reconstruction, and/or weight-based dosing when appropriate to reduce radiation dose to as low as reasonably achievable. Dictated by Tish Thorpe MD @ 03/06/2021 9:49:25 PM (Electronically Signed)
--- NOTE | 2021-03-06 21:51 | CT ---
Indication: Headache. Injury. Technique: Multiple contiguous axial images were obtained from the skullbase to the vertex without intravenous contrast enhancement. Please note that all CT scans at this facility use dose modulation, iterative reconstruction, and/or weight-based dosing when appropriate to reduce radiation dose to as low as reasonably achievable. Comparison: February 21, 2021 and February 03, 2021. Findings: The ventricles are symmetric and normal in size and morphology. The basal cisterns are widely patent. No intra-axial or extra-axial hemorrhage is identified. No mass, mass effect or midline shift is identified. A cavum septum pellucidum is identified. A linear area of increased density is identified in the right occipital lobe. This is been present since the 1st CT available for comparison, dated February 03, 2021. Previously this was felt to represent a venous anomaly. The bony calvarium is intact. The visualized paranasal sinuses and mastoid air cells are clear. Impression: No acute intracranial process. Please note that all CT scans at this facility use dose modulation, iterative reconstruction, and/or weight-based dosing when appropriate to reduce radiation dose to as low as reasonably achievable. Dictated by Melba Stovall MD @ 03/06/2021 9:49:06 PM (Electronically Signed)
--- NOTE | 2021-03-07 01:17 | EDM.PDOC ---
ED HPI GENERAL MEDICAL PROBLEM - General Chief Complaint: Trauma Stated Complaint: SEIZURES - EMS ARRIVAL Time Seen by Provider: 03/06/21 20:21 - History of Present Illness INITIAL COMMENTS - FREE TEXT/NARRATIVE: HISTORY AND PHYSICAL: History of present illness: This is a 20-year-old gentleman who presents ER today by EMS secondary to a seizure that was witnessed by his remained while he was in college. History has been obtained from the patient after his postictal state where he is more alert awake and oriented x3. Patient reports that his seizures started approximately 1-1/2 years ago after utilizing a significant amount of LSD. Patient reports that after the episode of using the LSD has been having intermittent episodes of seizures and this is his fourth 1 in the last year and a half. Patient reports that he is prescribed Keppra for seizures however he has been noncompliant. Patient denies any recent fevers, shakes, chills, nausea, vomiting, diarrhea, dysuria, frequency, urgency, chest pain, shortness of breath, dull pain. Patient denies any increased stress or lack of sleep. Patient denies any drug use or alcohol use. Patient reports that he stayed away from drugs ever since his seizures began. Patient has any cough cold or rhinorrhea. Patient denies any weakness to his upper or lower extremities. Patient did experience an episode of head trauma that occurred after a seizure during his postictal state. Patient denies any pain to his neck. Review of systems: As per history of present illness and below otherwise all systems reviewed and negative. Past medical history: As per history of present illness and as reviewed below otherwise noncontributory. Surgical history: As per history of present illness and as reviewed below otherwise noncontributory. Social history: No reported history of drug abuse. Family history: As per history of present illness and as reviewed below otherwise noncontributory. Physical exam: This patient was seen and evaluated during the 2019 SARS-CoV-2 novel coronavirus pandemic period. Community viral transmission is ongoing at time of this encounter and the emergency department is operating under pandemic response procedures. Constitutional: Patient is oriented to person, place, and time. Appears well- developed and well-nourished. No distress. HEENT: Moist mucous membranes Head: Normocephalic and atraumatic Eyes: Right eye exhibits no discharge. Left eye exhibits no discharge. No scleral icterus Neck: Normal range of motion. No tracheal deviation present. Cardiovascular: Normal rate and regular rhythm. Pulmonary: Effort normal, no respiratory distress. Abdominal: No distention Musculoskeletal: Normal range of motion Neurologic: Alert and oriented to person, place and time. Skin: [place], warm and dry. Psychiatric: Normal mood and affect. Behavior is normal. Judgment and thought content normal. Nursing note and vital signs have been reviewed Patient has no C-spine T-spine or L-spine tenderness to palpation. Patient has no left upper or right upper quadrant tenderness to palpation. Patient has no crepitus to palpation to the anterior chest wall. Patient is neurologically intact. Patient does not present with any signs or or symptoms that would be consistent with acute intracranial, intra-abdominal, intrathoracic, or long bone injury. All long bones have been palpated and range of motion been performed and there is no evidence of any acute pathology. Patient does have soft tissue swelling to the left frontal area. Diagnostics: CT head/C-spine: No acute evidence of fracture or intracranial injury. Patient does have soft to swelling to the left frontal region. CBC, CMP within normal limits. Therapeutics: Keppra 1 g IV Patient has been given Versed and Ativan by EMS secondary to aggressiveness during his postictal phase. NSS x1 L EK03/06/2021 8:48 PM As interpreted by ER physician: Mikaela: Nonspecific ST-T wave abnormalities Normal axis No evidence of ST elevation LA Normal sinus rhythm heart rate of 82 Assessment and plan: 20-year-old with a history of seizure disorder who presents ER today secondary to a witnessed seizure. Patient is noncompliant with his Keppra. I have spoken to the patient's mother and have updated her on his condition. At this time, the patient is alert awake and orient x3 and is ambulating the ER with stable gait. Patient reports that he had a ride back to his dorm room and feels comfortable with the plan to be discharged back to his room. Patient reports that he has not taking his Keppra since he ran out of the medication approximately 1 month ago. Patient will be given a prescription for his Keppra. Patient has been given a bolus of Keppra 1 g IV while in the ED. Patient has been monitored in the ED for several hours and is remained stable. Patient's postictal state has subsided and he is back to baseline. I have discussed with the patient the need for him to be compliant with his Keppra, get plenty of rest, avoid any alcohol or drugs. Reassessment at the time of disposition demonstrates that the patient is in no acute distress. The patient has remained stable throughout the entire ED visit and is without objective evidence for acute process requiring urgent intervention or hospitalization. The patient is stable for discharge, counseling is provided as documented above, discussed symptomatic treatment and specific co nditions for return. I have spoken with the patient/caregiver and discussed todays findings, in addition to providing specific details for the plan of care. Questions are answered and there is agreement with the plan. Definitive disposition and diagnosis as appropriate pending reevaluation and review of above. - Related Data Allergies Allergy/AdvReac Type Severity Reaction Status Date / Time No Known Allergies Allergy Verified 02/03/21 03:11 Home Meds: Home Meds FLUoxetine HCl [Prozac] 20 mg PO DAILY 02/03/21 [History] levETIRAcetam [Keppra] 500 mg PO BID #60 tablet 02/03/21 [Rx] levETIRAcetam [Keppra] 500 mg PO BID #30 tab 02/21/21 [Rx] Past Medical History HEENT History: Reports: None Cardiovascular History: Reports: None Respiratory History: Reports: None Gastrointestinal History: Reports: None Genitourinary History: Reports: None Musculoskeletal History: Reports: None Neurological History: Reports: Seizure Psychiatric History: Reports: Anxiety, Depression, Schizophrenia Other Psychiatric History: patient looks drowsy & not answering triage questions Endocrine/Metabolic History: Reports: None Hematologic History: Reports: None Other Hematologic History: patient looks drowsy & not answering triage questions Immunologic History: Reports: None Other Immunologic History: patient looks drowsy & not answering triage questions Oncologic (Cancer) History: Reports: None Dermatologic History: Reports: None - Infectious Disease History Infectious Disease History: Reports: Novel Coronavirus - Past Surgical History Head Surgeries/Procedures: Reports: None HEENT Surgical History: Reports: None Other HEENT Surgeries/Procedures: patient looks drowsy & not answering triage questions Other Cardiovascular Surgeries/Procedures: patient looks drowsy & not answering triage questions Other Respiratory Surgeries/Procedures: patient looks drowsy & not answering triage questions Other GI Surgeries/Procedures: patient looks drowsy & not answering triage questions Other Male Surgeries/Procedures: patient looks drowsy & not answering triage questions Other Endocrine Surgeries/Procedures: patient looks drowsy & not answering triage questions Other Neurological Surgeries/Procedures: patient looks drowsy & not answering triage questions Other Musculoskeletal Surgeries/Procedures:: patient looks drowsy & not answering triage questions Other Oncologic Surgeries/Procedures: patient looks drowsy & not answering triage questions Social & Family History - Family History HEENT: Reports: None - Caffeine Use Caffeine Use: Reports: Coffee ED ROS GENERAL - Review of Systems Review Of Systems: See Below ED EXAM, GENERAL - Physical Exam Exam: See Below Course - Vital Signs Last Recorded V/S: Last Vital Signs Temp Pulse 81 03/07/21 00:39 Resp 21 H 03/06/21 21:13 BP 120/71 03/07/21 00:39 Pulse Ox 92 L 03/07/21 00:39 - Orders/Labs/Meds Orders: Active Orders 24 hr Category Date Time Status DRUG SCREEN, URINE [URCHEM] Stat Lab 03/06/21 20:24 Ordered LEVETIRACETAM, S [REF] Stat Lab 03/06/21 20:20 Received Sodium Chloride 0.9% [Saline Flush] Med 03/06/21 20:24 Active 10 ml FLUSH ASDIRECTED PRN Sodium Chloride 0.9% [Saline Flush] Med 03/06/21 20:24 Active 2.5 ml FLUSH ASDIRECTED PRN Saline Lock Insert [OM.PC] Stat Oth 03/06/21 20:24 Ordered Medication Orders Sodium Chloride (Sodium Chloride 0.9% 10 Ml Syringe) 10 ml FLUSH ASDIRECTED PRN PRN Reason: Keep Vein Open Sodium Chloride (Sodium Chloride 0.9% 2.5 Ml Syringe) 2.5 ml FLUSH ASDIRECTED PRN PRN Reason: Keep Vein Open Labs: Laboratory Tests 03/06/21 03/06/21 Range/Units 20:20 20:20 WBC 15.35 H (4.0-11.0) K/uL RBC 4.92 (4.50-5.90) M/uL Hgb 15.2 (13.0-17.0) g/dL Hct 44.8 (38.0-50.0) % MCV 91.1 (80.0-98.0) fL MCH 30.9 (27.0-32.0) pg MCHC 33.9 (31.0-37.0) g/dL RDW Std Deviation 44.8 (28.0-62.0) fl RDW Coeff of Marla 14 (11.0-15.0) % Plt Count 317 (150-400) K/uL MPV 9.50 (7.40-12.00) fL Neut % (Auto) 86.0 H (48.0-80.0) % Lymph % (Auto) 10.6 L (16.0-40.0) % [place] % (Auto) 3.3 (0.0-15.0) % Eos % (Auto) 0.1 (0.0-7.0) % Baso % (Auto) 0.0 (0.0-1.5) % Neut # (Auto) 13.2 H (1.4-5.7) K/uL Lymph # (Auto) 1.6 (0.6-2.4) K/uL [place] # (Auto) 0.5 (0.0-0.8) K/uL Eos # (Auto) 0.0 (0.0-0.7) K/uL Baso # (Auto) 0.0 (0.0-0.1) K/uL Nucleated RBC % 0.0 /100WBC Nucleated RBCs # 0 K/uL Sodium 138 (136-148) mmol/L Potassium 3.2 L (3.5-5.1) mmol/L Chloride 97 L (98-107) mmol/L Carbon Dioxide 14.8 L (21.0-32.0) mmol/L BUN 15 (7.0-18.0) mg/dL Creatinine 1.7 H (0.8-1.3) mg/dL Est Cr Clr Drug Dosing TNP Estimated GFR (MDRD) 52.2 ml/min Glucose 251 H (74-106) mg/dL Calcium 9.2 (8.5-10.1) mg/dL Total Bilirubin 0.5 (0.2-1.0) mg/dL AST 26 (15-37) IU/L ALT 19 (14-63) IU/L Alkaline Phosphatase 79 (46-116) U/L Total Protein 9.2 H (6.4-8.2) g/dL Albumin 5.1 H (3.4-5.0) g/dL Globulin 4.1 H (2.6-4.0) g/dL Albumin/Globulin Ratio 1.2 (0.9-1.6) Ethyl Alcohol < 3.0 mg/dL Meds: Medications Generic Name Dose Route Start Last Admin Trade Name Raghavendra PRN Reason Stop Dose Admin Sodium Chloride 10 ml 03/06/21 20:24 Sodium Chloride 0.9% 10 Ml Syringe FLUSH ASDIRECTED PRN Keep Vein Open Sodium Chloride 2.5 ml 03/06/21 20:24 Sodium Chloride 0.9% 2.5 Ml Syringe FLUSH ASDIRECTED PRN Keep Vein Open Discontinued Medications Generic Name Dose Route Start Last Admin Trade Name Saulq PRN Reason Stop Dose Admin Sodium Chloride 1,000 mls @ 999 mls/hr 03/06/21 20:24 03/06/21 21:19 Normal Saline IV 03/06/21 21:24 999 mls/hr .Bolus ONE Administration Levetiracetam 1,000 mg/ 110 mls @ 440 mls/hr 03/06/21 20:25 03/06/21 21:23 Dextrose/Water IV 03/06/21 20:39 440 mls/hr Q12H STA Administration Ondansetron HCl 4 mg 03/06/21 20:24 03/06/21 21:21 Ondansetron 4 Mg/2 Ml Sdv IVPUSH 03/06/21 20:25 4 mg ONETIME ONE Administration Departure - Departure Time of Disposition: 01:15 Disposition: Home, Self-Care 01 Condition: Good Clinical Impression: Seizure, Medically noncompliant, Head injury - Discharge Information Instructions: Head Injury, Adult, Epilepsy, [id number], Seizure, Adult, [id number] Referrals: PCP,None [Primary Care Provider] - Forms: ED Department Discharge Additional Instructions: You were seen and evaluated in the ER today secondary to a seizure that resulted in a head injury during her seizure. The CT scan of your head and cervical spine were both normal. You have been given a bolus of 1 g of Keppra here in the ED. You will be given a prescription for Keppra to take. Please make sure that you take your medication as this can avoid you having further seizures down the road. Please make sure that you follow-up with your student health to see if they can help with getting you see a neurologist to help manage her seizure disorder. Please avoid any alcohol or drugs. Please get plenty of rest and sleep. Please stay off the computer as much as you can over the next several days. The following information is given to patients seen in the emergency department who are being discharged to home. This information is to outline your options for follow-up care. We provide all patients seen in our emergency department with a follow-up referral. The need for follow-up, as well as the timing and circumstances, are variable depending upon the specifics of your emergency department visit. If you don't have a primary care physician on staff, we will provide you with a referral. We always advise you to contact your personal physician following an emergency department visit to inform them of the circumstance of the visit and for follow-up with them and/or the need for any referrals to a consulting specialist. The emergency department will also refer you to a specialist when appropriate. This referral assures that you have the opportunity for follow-up care with a specialist. All of these measure are taken in an effort to provide you with optimal care, which includes your follow-up. Under all circumstances we always encourage you to contact your private physician who remains a resource for coordinating your care. When calling for follow-up care, please make the office aware that this follow-up is from your recent emergency room visit. If for any reason you are refused follow-up, please contact the [facility] Emergency Department at and asked to speak to the emergency department charge nurse. [facility] [address] [place] [id number] [facility] [address] [place] [id number] Sepsis Event Note (ED) - Focused Exam Vital Signs: Vital Signs Pulse Resp BP Pulse Ox 03/07/21 00:39 81 120/71 92 L 03/06/21 23:23 76 112/52 L 94 L 03/06/21 22:09 82 109/53 L 100 03/06/21 21:13 83 21 H 131/71 97 - My Orders Last 24 Hours: My Active Orders 03/06/21 20:20 LEVETIRACETAM, S [REF] Stat 03/06/21 20:24 DRUG SCREEN, URINE [URCHEM] Stat Sodium Chloride 0.9% [Saline Flush] 10 ml FLUSH ASDIRECTED PRN Sodium Chloride 0.9% [Saline Flush] 2.5 ml FLUSH ASDIRECTED PRN Saline Lock Insert [OM.PC] Stat - Assessment/Plan Last 24 Hours: My Active Orders 03/06/21 20:20 LEVETIRACETAM, S [REF] Stat 03/06/21 20:24 DRUG SCREEN, URINE [URCHEM] Stat Sodium Chloride 0.9% [Saline Flush] 10 ml FLUSH ASDIRECTED PRN Sodium Chloride 0.9% [Saline Flush] 2.5 ml FLUSH ASDIRECTED PRN Saline Lock Insert [OM.PC] Stat
== END 2021-03-07 01:35 | disposition home or self-care (01) ==
LOC: MW.ED 20:18
DX: S09.90XA Unspecified injury of head, initial encounter (principal); R56.9 Unspecified convulsions; Z91.14 Patient's other noncompliance with medication regimen; Z86.16 Personal history of COVID-19; Z79.899 Other long term (current) drug therapy; W17.89XA Other fall from one level to another, initial encounter
CPT/HCPCS: 36415; 70450; 72125; 80053; 80177; 80307; 85025; 93005; 96374; 96375; 99285; J1953; J2405; J7030